=== PATIENT | male | born 1980 | race Caucasian/White ===

== ENCOUNTER 2017-01-02 15:34 | Emergency (ER) | payer SELFPAY ==
[2017-01-02 15:39] VITALS: TEMP 97.9; O2SAT 98
[2017-01-02] MEDS ORDERED: Lidocaine 5% Patch TD STA (15:52)
--- NOTE | 2017-01-02 15:57 | C.PDOC ---
History Of Present Illness 36 year old male presents to the ED for evaluation of new onset right shoulder pain. Patient symptoms were initially occasional but have gradually worsened. Patient is unable to fully extend the area. He denies trauma or history of chronic pain. Time Seen by Provider: 01/02/17 15:42 Chief Complaint (Nursing): Upper Extremity Problem/Injury History Per: Patient History/Exam Limitations: no limitations Onset/Duration Of Symptoms: Days Current Symptoms Are (Timing): Worse Quality: "Pain" Additional History Per: Patient Past Medical History Reviewed: Historical Data, Nursing Documentation, Vital Signs Vital Signs: Last Vital Signs Temp 97.9 F 01/02/17 15:36 Pulse 79 01/02/17 16:22 Resp 18 01/02/17 16:22 BP 125/72 01/02/17 16:22 Pulse Ox 98 01/02/17 16:22 - Medical History PMH: No Chronic Diseases Surgical History: No Surg Hx Family History: States: Unknown Family Hx - Social History Hx Alcohol Use: Yes Hx Substance Use: No - Immunization History Hx Tetanus Toxoid Vaccination: No Hx Influenza Vaccination: No Hx Pneumococcal Vaccination: No Review Of Systems Musculoskeletal: Positive for: Shoulder Pain (right) Physical Exam - Physical Exam Appears: Non-toxic, No Acute Distress Skin: Normal Color, Warm, Dry Extremity: Capillary Refill (less than 2 seconds ), Other (unable to adduct and extend right upper extremity past 90 degrees. pain is worse with external rotation. positive beer can test ) Neurological/Psych: Oriented x3, Normal Speech, Normal Cognition Gait: Steady ED Course And Treatment O2 Sat by Pulse Oximetry: 98 (on RA) Pulse Ox Interpretation: Normal Disposition Counseled Patient/Family Regarding: Diagnosis, Need For Followup, Rx Given - Disposition Referrals: [facility] [Outside] [facility] [Outside] Disposition: HOME/ ROUTINE Disposition Time: 15:53 Condition: IMPROVED Prescriptions: Acetaminophen [Tylenol Extra Strength] 2 tab PO Q6 #30 tablet Ibuprofen [Motrin] 600 mg PO Q6 #30 tab Lidocaine 5% [Lidoderm] 1 ea TD PRN PRN #10 patch PRN Reason: Pain, Moderate (4-7) Instructions: Rotator Cuff Tendinitis (ED), Shoulder Bursitis (ED) Forms: [facility] (Urdu), Work Excuse - Clinical Impression Clinical Impression: Shoulder pain - Scribe Statement The provider has reviewed the documentation as recorded by the Scribe (MARIO) Provider Attestation: All medical record entries made by the Scribe were at my direction and personally dictated by me. I have reviewed the chart and agree that the record accurately reflects my personal performance of the history, physical exam, medical decision making, and the department course for this patient. I have also personally directed, reviewed, and agree with the discharge instructions and disposition.
[2017-01-02 16:36] VITALS: BP 125/72; PULSE 79; RESP 18
== END 2017-01-02 16:24 | disposition home or self-care (01) ==
LOC: C.ER 15:34
DX: M25.511 Pain in right shoulder (principal)
CPT/HCPCS: 96372; 99285; J1885